=== PATIENT | female | born 1950 | race Caucasian/White ===

== ENCOUNTER 2020-11-02 09:09 | Inpatient (IN) | payer OTHER ==
[~2020-11-02] VITALS: Ht 154.9 cm; Wt 98.9 kg
[2020-11-02] VITALS (18 sets, daily range): BP systolic 93–209; BP diastolic 55–115
[2020-11-02 09:31] LABS: ABSOLUTE BASOPHILS 0.1 thou/uL (0.0-0.2); ABSOLUTE LYMPHOCYTES 0.8 thou/uL (0.8-5.3); ABSOLUTE MONOCYTES 0.8 thou/uL (0.0-1.2); ABSOLUTE NEUTROPHILS 8.4 thou/uL (1.6-8.1); BASOPHILS 1.1 %; EOSINOPHILS 0.4 %; HEMATOCRIT 38.3 % (37.0-47.0); LYMPHOCYTES 7.8 %; MCH 25.5 pg (26.0-34.0); MCHC 31.3 g/dL (28.0-37.0); MCV 81.5 fL (80.0-100.0); MPV 8.9 fl. (7.2-11.1); NUCLEATED RBCS 0 /100WBC; PLATELET COUNT* 394 thou/uL (150-400); POLYS 82.7 %; RDW-CV 20.3 % (10.5-14.5); WBC 10.1 thou/uL (4.0-11.0)
[2020-11-02 09:41] LABS: CREATININE 1.2 mg/dL (0.6-1.3); POTASSIUM 3.7 mmol/L (3.5-5.1)
[2020-11-02 09:55] LABS: ALBUMIN 3.2 g/dL (3.4-5.0); CK-MB MASS 14.2 ng/mL (<0.5-3.6); MAGNESIUM 1.7 mg/dL (1.8-2.4); TOTAL BILIRUBIN 0.3 mg/dL (<0.1-1.0); TOTAL PROTEIN 8.1 g/dL (6.4-8.2)
[2020-11-02 10:10] LABS: APTT 25.9 Seconds (25.0-31.3); PROTIME 10.7 Seconds (9.20-11.50)
[2020-11-02 11:27] LABS: BE -1.3 mmol/L (-2 to +3); PCO2 48.7 mmHg (35.0-45.0); pH 7.329 (7.340-7.450)
[2020-11-02 11:30] LABS: PO2 144.5 mmHg (75.0-100.0)
--- NOTE | 2020-11-02 15:30 | EKG ---
[place] [address] ELECTROCARDIOGRAM REPORT Name: FATEMEHGROVER Joel Room: [address] IN ..#: [id number] Admission: 11/02/20 Attend Phys: Dilan Parkinson, Discharge: Date of : 50 Date of Service: 11/02/20 0918 Report #: [id number] THIS REPORT FOR: //name// [facility] ED Test Date: 2020-11-02 Test Time: 09:18:00 Pat Name: GROVER WELDON Department: Room: [facility] Gender: F Heel Cutter: LUKE : 1950 Requested By: Sang Hernandez Order Number: [id number] MD: Blane Morris Measurements Intervals [place] Rate: 109 P: 78 MN: 151 QRS: -12 QRSD: 105 T: 13 QT: 344 QTc: 464 Interpretive Statements Sinus tachycardia Atrial premature complexes Probable left atrial enlargement Anterolateral infarct, acute (LAD) Minimal ST elevation, inferior leads No previous ECG available for comparison Electronically Signed On 11-02-2020 15:29:57 CDT by Blane Morris [email or web address] <ELECTRONICALLY SIGNED> By: Blane Morris MD, FAC 11/02/20 1529 7 7 Blane Morris MD, FAC /EPI
[2020-11-03] VITALS (14 sets, daily range): BP systolic 72–163; BP diastolic 39–95
[2020-11-03 04:40] LABS: HEMATOCRIT 37.8 % (37.0-47.0); HEMOGLOBIN 11.7 gm/dL (12.0-15.0); MCH 25.5 pg (26.0-34.0); MCHC 30.9 g/dL (28.0-37.0); MCV 82.4 fL (80.0-100.0); MPV 9.2 fl. (7.2-11.1); NUCLEATED RBCS 0 /100WBC; PLATELET COUNT* 326 thou/uL (150-400); RBC 4.58 mil/uL (4.20-5.00); RDW-CV 20.5 % (10.5-14.5)
[2020-11-03 04:49] LABS: ANION GAP 4 mmol/L (7-16); BUN 18 mg/dL (7-18); CALCIUM 8.1 mg/dL (8.5-10.1); CHLORIDE 101 mmol/L (98-107); CHOLESTEROL 135 mg/dL (<200); CO2 34 mmol/L (21-32); CREATININE 0.9 mg/dL (0.6-1.3); GLUCOSE 136 mg/dL (70-99); HDL CHOLESTEROL 35 mg/dL (>40); LDL CHOLESTEROL 86 mg/dL (<100); POTASSIUM 3.8 mmol/L (3.5-5.1); SODIUM 139 mmol/L (136-145); TC:HDL 3.9 Ratio (Not establshd); TRIGLYCERIDE 74 mg/dL (<150); VLDL 15 mg/dL (<40)
[2020-11-03 04:52] LABS: SERUM ASSESSMENT Clear
[2020-11-03 05:48] LABS: ABSOLUTE LYMPHOCYTES 0.6 thou/uL (0.8-5.3); ABSOLUTE NEUTROPHILS 9.4 thou/uL (1.6-8.1); ANISOCYTOSIS 1+; PLATELET ESTIMATE ADEQUATE; POIKILOCYTOSIS 1+
[2020-11-04 03:49] VITALS: BP 92/45
[2020-11-04 04:38] LABS: CALCIUM 7.2 mg/dL (8.5-10.1); CREATININE 1.7 mg/dL (0.6-1.3)
[2020-11-04 08:00] VITALS: BP 94/58
--- NOTE | 2020-11-04 11:54 | EKG ---
[place] [address] ELECTROCARDIOGRAM REPORT Name: GROVER WELDON Room: [address] IN ..#: [id number] Admission: 11/02/20 Attend Phys: Dilan Parkinson, Discharge: Date of : 50 Date of Service: 11/04/20822 Report #: [id number] THIS REPORT FOR: //name// [facility] Test Date: 2020-11-04 Test Time: 08:23:10 Pat Name: GROVER WELDON Department: Room: [address] Gender: F Resource Management Specialist: MARISELA : 1950 Requested By: Blane Morris Order Number: [id number] MD: Blane Morris Measurements Intervals [place] Rate: 79 P: 63 MT: 171 QRS: -9 QRSD: 102 T: 2 QT: 380 QTc: 436 Interpretive Statements Sinus rhythm Probable left atrial enlargement Probable anteroseptal infarct, recent Lateral leads are also involved Compared to ECG 11/02/2020 09:18:00 Sinus tachycardia no longer present Atrial premature complex(es) no longer present ST (T wave) deviation no longer present Myocardial infarct finding still present Electronically Signed On 11-04-2020 11:54:18 CDT by Blane Morris [email or web address] <ELECTRONICALLY SIGNED> By: Blane Morris MD, [facility] 11/04/20 1154 2 2 Blane Morris MD, [facility] /EPI
[2020-11-04 12:00] VITALS: BP 120/64
--- NOTE | 2020-11-04 13:08 | CON ---
[address] [address] CONSULTATION Name: GROVER WELDON Room: [address] IN [facility]#: [id number] Admission: 11/02/20 Attend Phys: Dilan Parkinson MD Discharge: Date of : 50 Report #: [id number] THIS REPORT FOR: cc: GABY - No family physician/PCP FAM - No family physician/PCP Blane Morris MD [facility] ~ DOC #: [id number] cc: ____ Blane Morris MD DATE OF CONSULTATION: 11/02/2020 CARDIOLOGY CONSULTATION INDICATION: ST-elevation myocardial infarction. HISTORY OF PRESENT ILLNESS: The patient is a 70-year-old white female with no prior cardiac history. She presented to the Emergency Room with complaints of chest pain beginning at 05:30 this morning. EKG at approximately 09:[address] segment elevation in the anterior leads with reciprocal ST segment depression in the inferior leads. The patient reports some twinges of chest discomfort a few days ago, relieved with Tums. She has had lower extremity swelling on and off for the past several weeks. She denies any prior history of cardiac disease. She denies any history of hypertension, diabetes or dyslipidemia. She takes no medications. SOCIAL HISTORY: She smokes a half a pack of cigarettes daily. FAMILY HISTORY: Positive for coronary artery disease. ALLERGIES: PENICILLIN AND SULFA. CURRENT MEDICATIONS: None. REVIEW OF SYSTEMS: A 14-point review positive for chest discomfort and dyspnea on exertion without orthopnea or paroxysmal nocturnal dyspnea. She has joint pain. She has lower extremity swelling. Otherwise, 14-point review of systems was unremarkable. PHYSICAL EXAMINATION: VITAL SIGNS: Vital signs presently stable. Blood pressure is 164/101, pulse is 100 and regular. GENERAL: This is a pleasant elderly female who does not appear to be in distress. Mood and affect appropriate. HEENT: Extraocular muscles intact. Mucous membranes are moist[place] [address] CONSULTATION Name: GROVER WELDON Room: [address]#: [id number] Admission: 11/02/20 Attend Phys: Dilan Parkinson MD Discharge: Date of : 50 Report #: [id number] wearing glasses. NECK: Examination of the neck shows no jugular venous CHEST: Examination of the chest reveals clear lung nunn without wheezes or rales. CARDIAC: Reveals a regular rhythm. Normal S1, S2. I do not appreciate gallop or murmur. ABDOMEN: Examination of the abdomen reveals normal bowel sounds. Abdomen is soft and nontender. EXTREMITIES: Examination of the extremity shows 2-3+ pitting edema to the knees bilaterally. LABORATORY DATA: Labs are pending at the time of this dictation. DIAGNOSTIC DATA: Chest x-ray is ordered and pending at the time of this dictation. IMPRESSION AND RECOMMENDATION: 1. Acute ST elevation myocardial infarction. The patient will be taken emergently to the cardiac catheterization lab for emergent intervention. Further medication adjustments and treatments, pending those results. 2. Hypertension. Blood pressure elevated at present. We will adjust antihypertensive medications post-intervention as needed. 3. Probable dyslipidemia. Fasting lipid profile will be obtained. 4. Chronic tobacco habituation. Cessation will be advised. MD RICHARD Miller/LISA/DARELL <ELECTRONICALLY SIGNED> By: Blane Morris MD, [facility] 11/04/20 1308 0831 [id number] medical centerhaylie Morris MD, FACC /nt
[2020-11-04] MEDS ORDERED: SPIRONOLACTONE25 MG PO (13:09)
[2020-11-04] MEDS ORDERED: BAYER CHEWABLE81 MG PO (13:09)
[2020-11-04] MEDS ORDERED: EFFIENT10 MG PO (13:09)
[2020-11-04] MEDS ORDERED: NEXIUM40 MG PO (13:09)
[2020-11-04] MEDS ORDERED: LIPITOR 40 MG T40 M1 PO (13:09)
[2020-11-04] MEDS ORDERED: COZAAR 50 MG TA50 M1 PO (13:09)
[2020-11-04] MEDS ORDERED: CARVEDILOL3.125 MG PO (13:09)
[2020-11-04] MEDS ORDERED: PREDNISONE 10 M10 MG PO (13:09)
--- NOTE | 2020-11-04 13:45 | 2DMMODE ---
[place] [address] 2 D/M-MODE ECHOCARDIOGRAM Name: EFREM WELDONALEXANDER Joel Room: [address] IN [facility]#: [id number] Admission: 11/02/20 Attend Phys: Dilan Parkinson, Discharge: Date of : 50 Date of Service: 11/04/20 1344 Report #: [id number] THIS REPORT FOR: cc: FAM - No family physician/PCP FAM - No family physician/PCP Blane Morris MD [facility] ~ APPROVED REPORT Study performed: 11/04/2020 12:08:17 EXAM: Comprehensive 2D, Doppler, and color-flow Echocardiogram Patient Location: In-Patient Room #: [facility] Status: routine BSA: 1.93 HR: 87 bpm Rhythm: NSR Other Information Study Quality: Good Indications Acute PR 2D Dimensions IVSd: 13.58 (7-11mm) LVOT Diam: 20.83 (18-24mm) LVDd: 48.97 mm PWd: 10.40 (7-11mm) Ascending Ao: 26.00 (22-36mm) LVDs: 38.96 (25-40mm) Volumes Left Atrial Volume (Systole) LA ESV Index: 43.00 mL/m2 Aortic Valve AoV Peak Bayron.: 1.07 m/s AO Peak Gr.: 4.59 mmHg LVOT Max P.75 mmHg AO Mean Gr.: 2.51 mmHg LVOT Mean P.11 mmHg LVOT Max V: 0.83 m/s AO V2 VTI: 17.30 cm LVOT Mean V: 0.47 m/s DIANA (VTI): 2.55 cm2 LVOT V1 VTI: 12.96 [place] [address] 2 D/M-MODE ECHOCARDIOGRAM Name: GROVER WELDON Room: [address] IN ..#: [id number] Admission: 11/02/20 Attend Phys: Dilan Parkinson, Discharge: Date of : 50 Date of Service: 11/04/20 1344 Report #: [id number] E/A Ratio: 2.23 MV Decel. Time: 132.60 ms MV E Max Bayron.: 1.00 m/s MV PHT: 38.46 ms MVA (PHT): 5.72 cm2 TDI E/Lateral E': 14.29 E/Medial E': 25.00 Medial E' Bayron.: 0.04 m/s Lateral E' Bayron.: 0.07 m/s Pulmonary Valve PV Peak Bayron.: 0.70 m/s PV Peak Gr.: 1.99 mmHg Tricuspid Valve RAP Estimate: 5.00 mmHg TR Peak Gr.: 35.28 mmHg RVSP: 40.00 mmHg PA Pressure: 40.00 mmHg Left Ventricle The left ventricle is normal size. There is akinesis of the mid to apical anterior wall apex and apical portion the inferior wall. Mild concentric left ventricular hypertrophy. Left ventricular ejection fraction is moderate to severely decreased. LVEF is 30-35%. Transmitral Doppler flow pattern suggests restrictive physiology. Right Ventricle The right ventricle is normal size. The right ventricular systolic function is normal. Atria Left atrium is moderately dilated. The right atrium size is normal. Aortic Valve Mild aortic valve sclerosis. No aortic regurgitation is present. There is no aortic valvular stenosis. Mitral Valve The mitral valve is normal in structure. Mild mitral regurgitation. No evidence of mitral valve stenosis. Tricuspid Valve The tricuspid valve is normal in structure. Mild tricuspid regurgitation. [place] [address] 2 D/M-MODE ECHOCARDIOGRAM Name: GROVER WELDON Room: [address]#: [id number] Admission: 11/02/20 Attend Phys: Dilan Parkinson, Discharge: Date of : 50 Date of Service: 11/04/20 1344 Report #: [id number] Pulmonic Valve The pulmonary valve is normal in structure. There is no pulmonic valvular regurgitation. Great Vessels The aortic root is normal in size. IVC is normal in size and collapses >50% with inspiration. Pericardium There is no pericardial effusion. <Conclusion> The left ventricle is normal size. Mild concentric left ventricular hypertrophy. Left ventricular ejection fraction is moderate to severely decreased. LVEF is 30-35%. Transmitral Doppler flow pattern suggests restrictive physiology. There is akinesis of the mid to apical anterior wall apex and apical portion the inferior wall. Mild aortic valve sclerosis. Mild mitral regurgitation. Mild tricuspid regurgitation. Moderate pulmonary hypertension. IVC is normal in size and collapses >50% with inspiration. <ELECTRONICALLY SIGNED> By: Blane Morris MD, FACC 11/04/20 1344 1344 1344 Blane Morris MD, FACC /INF
[2020-11-04 16:00] VITALS: BP 91/55
[2020-11-04 20:00] VITALS: BP 108/62
[2020-11-05] VITALS (7 sets, daily range): BP systolic 98–122; BP diastolic 50–74
[2020-11-05 06:06] LABS: CALCIUM 7.2 mg/dL (8.5-10.1); CREATININE 2.3 mg/dL (0.6-1.3); POTASSIUM 4.3 mmol/L (3.5-5.1)
[2020-11-05 22:07] LABS: URINE BLOOD 3+ (Negative); URINE CLARITY SL CLOUDY; URINE COLOR DARK YELLOW; URINE GLUCOSE-RANDOM TRACE (Negative); URINE KETONES TRACE (Negative); URINE LEUKOCYTES NEGATIVE (Negative); URINE NITRITE NEGATIVE (Negative); URINE PROTEIN 2+ (Negative)
[2020-11-05 22:10] LABS: URINE BILIRUBIN 1+ (Negative)
[2020-11-05 22:12] LABS: ICTOTEST (BILI CONFIRMATORY) Negative (Negative)
[2020-11-05 23:17] LABS: CASTS None Seen /LPF (None Seen); SQUAMOUS 0-3 Few /LPF (0-3); URINE RBC >20 Many /HPF (0-2); URINE WBC 0-5 Rare /HPF (0-5)
[2020-11-05 23:18] LABS: BACTERIA >30 Many /HPF (None Seen); CRYSTALS None Seen /LPF (None Seen)
[2020-11-06 03:47] VITALS: BP 110/68
[2020-11-06 04:33] LABS: ABSOLUTE LYMPHOCYTES 1.2 thou/uL (0.8-5.3); ABSOLUTE MONOCYTES 1.1 thou/uL (0.0-1.2); ABSOLUTE NEUTROPHILS 8.7 thou/uL (1.6-8.1); BASOPHILS 0.2 %; EOSINOPHILS 0.1 %; HEMATOCRIT 32.5 % (37.0-47.0); HEMOGLOBIN 10.2 gm/dL (12.0-15.0); LYMPHOCYTES 11.1 %; MCHC 31.4 g/dL (28.0-37.0); MCV 79.7 fL (80.0-100.0); MONOCYTES 10.1 %; MPV 8.9 fl. (7.2-11.1); NUCLEATED RBCS 0 /100WBC; PLATELET COUNT* 370 thou/uL (150-400); POLYS 78.5 %; RBC 4.07 mil/uL (4.20-5.00); RDW-CV 20.4 % (10.5-14.5); WBC 11.1 thou/uL (4.0-11.0)
[2020-11-06 04:51] LABS: ALBUMIN 2.8 g/dL (3.4-5.0); CALCIUM 7.2 mg/dL (8.5-10.1); CREATININE 2.5 mg/dL (0.6-1.3); MAGNESIUM 2.2 mg/dL (1.8-2.4); PHOSPHORUS* 4.2 mg/dL (2.5-4.9); POTASSIUM 4.6 mmol/L (3.5-5.1); TOTAL BILIRUBIN 0.2 mg/dL (<0.1-1.0)
[2020-11-06 07:06] LABS: ANISOCYTOSIS 2+; TARGET CELLS 1+
[2020-11-06 08:30] VITALS: BP 107/61
[2020-11-06 12:00] VITALS: BP 100/64
[2020-11-06 15:37] VITALS: BP 121/67
[2020-11-06 20:00] VITALS: BP 129/76
[2020-11-07 00:27] VITALS: BP 140/74
[2020-11-07 04:08] VITALS: BP 106/60
[2020-11-07 05:15] LABS: ABSOLUTE LYMPHOCYTES 1.1 thou/uL (0.8-5.3); ABSOLUTE MONOCYTES 1.2 thou/uL (0.0-1.2); ABSOLUTE NEUTROPHILS 6.9 thou/uL (1.6-8.1); BASOPHILS 0.1 %; EOSINOPHILS 0.1 %; HEMOGLOBIN 10.3 gm/dL (12.0-15.0); MCHC 31.1 g/dL (28.0-37.0); MCV 80.5 fL (80.0-100.0); MPV 9.1 fl. (7.2-11.1); NUCLEATED RBCS 0 /100WBC; PLATELET COUNT* 342 thou/uL (150-400); POLYS 74.8 %; RDW-CV 20.2 % (10.5-14.5); WBC 9.2 thou/uL (4.0-11.0)
[2020-11-07 05:34] LABS: ALBUMIN 2.8 g/dL (3.4-5.0); CALCIUM 7.2 mg/dL (8.5-10.1); CREATININE 1.6 mg/dL (0.6-1.3); POTASSIUM 3.9 mmol/L (3.5-5.1); TOTAL BILIRUBIN 0.2 mg/dL (<0.1-1.0); TOTAL PROTEIN 6.9 g/dL (6.4-8.2)
[2020-11-07 08:00] VITALS: BP 102/54
[2020-11-07 11:41] VITALS: BP 102/54
--- NOTE | 2020-11-07 13:25 | CON ---
[address] [address] CONSULTATION Name: GROVER WELDON Room: [address] IN [place].#: [id number] Admission: 11/02/20 Attend Phys: Dilan Parkinson MD Discharge: 11/07/20 Date of : 50 Report #: [id number] THIS REPORT FOR: cc: GABY - No family physician/PCP FAM - No family physician/PCP Eddie Gutierrez MD ~ DOC #: [id number] Eddie Gutierrez MD DATE OF CONSULTATION: 11/05/2020 CONSULTING PHYSICIAN: Dilan Parkinson MD REASON FOR CONSULTATION: Acute kidney injury. HISTORY OF PRESENT ILLNESS: This is a 70-year-old female who I am asked to see for acute kidney injury following ST elevation IN and stent placement. Currently, appears to be comfortable, has no complaints. Denies any baseline renal impairment. REVIEW OF SYSTEMS: Constitutional, psych, heme, eyes, ENT, respiratory, cardiac, GI, , endocrine, all negative except as documented above. PAST MEDICAL HISTORY: Coronary artery disease with recent ST elevation IN and CHF along with COPD. SOCIAL HISTORY: Positive for tobacco. FAMILY HISTORY: Nonpertinent is a 70-year-old female. CURRENT MEDICATIONS: Reviewed. PHYSICAL EXAMINATION: VITAL SIGNS: Blood pressure 105/60, pulse 82, respirations 17, temperature 36.2. GENERAL: No acute distress. EYES: Open. EARS: Externally normal. NECK: Supple. CARDIOVASCULAR: Regular rate. LUNGS: No crackles. ABDOMEN: Soft. MUSCULOSKELETAL: Nontender. Positive lower extremity edema. PSYCHIATRIC: Awake, alert. LABORATORY DATA: White cell count 10, hemoglobin 11.7, platelets [place] [address] CONSULTATION Name: GROVER WELDON Wisam Room: [address]#: [id number] Admission: 11/02/20 Attend Phys: Dilan Parkinson MD Discharge: 11/07/20 Date of : 50 Report #: [id number] 136, potassium 4.3, chloride 100, bicarbonate 30, BUN 55, creatinine 2.3, glucose 161, calcium 7.2. ASSESSMENT: 1. Acute kidney injury. Baseline creatinine unknown. Admission creatinine 1.2 up to 2.3 in the setting of ST elevation IN and stent placement with an ejection fraction of 25-30%. She was on Lasix, Aldactone, and losartan. 2. ST elevation myocardial infarction, status post cardiac catheterization. 3. Chronic obstructive pulmonary disease. 4. History of hypertension. 5. Ischemic cardiomyopathy. 6. Bilateral lower extremity edema. PLAN: Monitor I's and O's. Check renal ultrasound, check UA, check urine protein to creatinine ratio. Check lower extremity Doppler. Continue current management. Check lab again in the a.m. Thank you for requesting my opinion in the care and management of this patient. MD JOVAN Siddiqui/LISA/DARELL <ELECTRONICALLY SIGNED> By: Eddie Gutierrez MD 11/07/20 1325 1525 Abicynthia Gutierrez MD /nt
[2020-11-08 11:48] VITALS: BP 163/95
--- NOTE | 2020-11-08 12:14 | CARD ---
[address] [address] CARDIAC CATH REPORT Name: GROVER WELDON Room: [address]#: [id number] Admission: 11/02/20 Attend Phys: Dilan Parkinson MD Discharge: 11/07/20 Date of : 50 Report #: [id number] THIS REPORT FOR: cc: FAM - No family physician/PCP FAM - No family physician/PCP Tramaine Calderon MD [facility] ~ APPROVED REPORT Study performed: 11/02/2020 09:28:32 Patient Details Patient Status: ED Room #: The patient is a 70 year-old female Event Personnel Tramaine Calderon Door To Door Sales Representative, Blane Morris Strap Folding Machine Operator, Ave Croft RN RN, Alexy Waldron RTR Scrub, Angela Demarco RTR Monitor Procedures Performed Art Access - R femoral artery Left Heart Cath w/or w/o Coronaries KRISTEN Revasc AMI Total/Sub Single LAD Hemostasis w/ Angioseal Indication Abnormal ECG, STEMI , Chest pain Risk Factors Tobacco History () Admission/Lab Medications/Medications given during procedure Glycoprotein IllbIlla Inhibitors, Heparin Unfract., Aspirin PO 325 mg, Lidocaine Subcut 12 ml, Oxygen Nasal cannula 2 l per min, 0.9% Sodium Chloride IV 75 ml per hr, Effient PO 60 mg Procedure Narrative The patient was brought emergently to the Cardiac Catheterization Laboratory and was prepped and draped in a sterile manner. The right femoral was infiltrated with 2% Lidocaine subcutaneous anesthesia. A Mercer 6 FR sheath was inserted into the right femoral artery. Coronary angiography was performed using coronary diagnostic catheters. The right coronary system was accessed and visualized with a Diagnostic 6 Fr JR 4 catheter. The [place] [address] CARDIAC CATH REPORT Name: GROVER WELDON Room: [address]#: [id number] Admission: 11/02/20 Attend Phys: Dilan Parkinson MD Discharge: 11/07/20 Date of : 50 Report #: [id number] accessed and visualized with a Diagnostic 6 Fr JL 4 catheter. The left ventricle was accessed and visualized with a Diagnostic 6 Fr Pigtail catheter. Left ventricular/Aortic Valve gradient assessed via catheter pullback. Left ventriculogram was performed in STERN projection. Pre-demployment femoral angiogram was performed . Closure device was deployed with a Fr 6 Fr Angioseal. The patient tolerated the procedure well and there were no complications associated with the procedure. There was no hematoma. Intraoperative Conscious Sedation No sedation was given. Case start was 0940 and case end was 1012. Fluoro Time: 7.2 minutes Dose: DAP 283603 cGycm2 1684 mGy Contrast Type and Amount: Visipaque 280 ml Coronary Angiography The patient's coronary anatomy is left dominant. Diagnostic Cath Left Main The LAD and circumflex have separate ostia. LAD The left anterior descending coronary artery is totally occluded acutely in its midportion. Circumflex The circumflex coronary artery is free of significant disease and a dominant vessel. OM1 A large branch first obtuse marginal branch is free of significant disease. OM2 A moderate sized second obtuse marginal branch appears normal. Right Coronary A small nondominant right coronary artery has minimal plaquing proximally. R PDA A moderate-sized branch left posterior lateral branch is free of significant disease. RPLV New moderate size left PDA is free of significant disease. Left Ventriculography The left ventricular ejection fraction is estimated to be 25-30%. Left ventricular wall motion abnormalities are present. There is no mitral insufficiency. Akinesis noted of the mid and distal anterior wall and apex. Hemodynamics The aortic pressure is 143/85 mmHg with a mean of 108 [place] [address] CARDIAC CATH REPORT Name: GROVER WELDON Wisam Room: [address]#: [id number] Admission: 11/02/20 Attend Phys: Dilan Parkinson MD Discharge: 11/07/20 Date of : 50 Report #: [id number] ventricular pressure is 139/27 mmHg with a mean of mmHg. The left ventricular end diastolic pressure is 35 mmHg. There was no gradient across the aortic valve upon pullback. Pullback from the left ventricle to the aorta revealed no gradient across the aortic valve. PCI Technique Lesion Anticoagulation was achieved with Heparin. bolus of IV aggrastat given Percutaneous coronary intervention was performed on the mid left anterior descending artery segment. The lesion stenosis prior to intervention was 100% with NELL 0 flow. A 6F XB LAD 3.5 Guide Catheter was used to engage the left main ostium. A IG: BMW 190cm Interventional Guidewire was used to cross the lesion. BALLOON DILATION A Balloon catheter Euphora SC 2.5x12 was inserted and inflated up to 14.00atm for 11seconds. Repeat angiography revealed the following post-dilatation results: 80% stenosis. Two separate ostia were noted of the left coronary artery arising from the left coronary cusp. Unable to cannulate the LAD ostium with a XBLAD4.0 guiding catheter. STENT DEPLOYMENT A drug-eluting stent Kye RX Stent 3.5X18mm was inserted and inflated up to 9.00atm for 15seconds. Repeat angiography revealed the following post-stent deployment results: 0% stenosis. Additional Inflation: 16.00atm for 17seconds. Additional Inflation: 18.00atm for 9seconds. Final angiography reveals 0 % stenosis with NELL 3 flow. Conclusion 1. Acute occlusion of the mid left anterior sending coronary artery. 2. Left dominant system. 3. Separate ostia for the LAD and circumflex. 4. Elevated left ventricular end-diastolic pressure consistent with acute heart failure. 5. successful placement of a drug eluting stent in the mid LAD 6. LVEF 25-30% Recommendations 1. Percutaneous coronary intervention with drug-eluting stent placement to [place] [address] CARDIAC CATH REPORT Name: GROVER WELDON Room: [address] IN [place].#: [id number] Admission: 11/02/20 Attend Phys: Dilan Parkinson MD Discharge: 11/07/20 Date of : 50 Report #: [id number] 2. Continue aggressive risk factor modification and medical management of heart failure. Diagnostic Cath Approved by: Blane Morris MD Date/Time: <ELECTRONICALLY SIGNED> By: Tramaine Calderon MD, FACC 11/08/20 1213 12 1213Dkim Calderon MD, FACC /INF
== END 2020-11-07 12:50 | disposition home or self-care (01) | DRG 246 ==
LOC: M.ERS 09:09 → M.CL 09:31 → M.TBA-CV 09:31 → M.CL 11:17 → M.ICU 11:17 → M.2W 11:17 → M.TBA-CV 11:17 → M.ICU 11:45 → M.2W 11-03 13:39
PROVIDERS: Family Medicine; Internal Medicine; Internal Medicine Cardiovascular Disease; Internal Medicine Nephrology; ADMIT Internal Medicine; ATTEND Internal Medicine
PROC: B215YZZ Fluoroscopy of Left Heart using Other Contrast (ICD-10-PCS; principal; 2020-11-02)
PROC: B211YZZ Fluoroscopy of Multiple Coronary Arteries using Other Contrast (ICD-10-PCS; principal; 2020-11-02)
PROC: 3E033PZ Introduction of Platelet Inhibitor into Peripheral Vein, Percutaneous Approach (ICD-10-PCS; principal; 2020-11-02)
PROC: 5A09357 Assistance with Respiratory Ventilation, Less than 24 Consecutive Hours, Continuous Positive Airway Pressure (ICD-10-PCS; principal; 2020-11-02)
PROC: 4A023N7 Measurement of Cardiac Sampling and Pressure, Left Heart, Percutaneous Approach (ICD-10-PCS; principal; 2020-11-02)
PROC: 027034Z Dilation of Coronary Artery, One Artery with Drug-eluting Intraluminal Device, Percutaneous Approach (ICD-10-PCS; principal; 2020-11-02)
DX: I21.09 ST elevation (STEMI) myocardial infarction involving other coronary artery of anterior wall (principal); J96.20 Acute and chronic respiratory failure, unspecified whether with hypoxia or hypercapnia; I50.21 Acute systolic (congestive) heart failure; N17.0 Acute kidney failure with tubular necrosis; J44.1 Chronic obstructive pulmonary disease with (acute) exacerbation; F17.210 Nicotine dependence, cigarettes, uncomplicated; I11.0 Hypertensive heart disease with heart failure; I77.1 Stricture of artery; E78.5 Hyperlipidemia, unspecified; I25.10 Atherosclerotic heart disease of native coronary artery without angina pectoris; I25.5 Ischemic cardiomyopathy; Z20.822 Contact with and (suspected) exposure to COVID-19; Z88.0 Allergy status to penicillin; Z88.2 Allergy status to sulfonamides

== ENCOUNTER → 2020-11-10 | Outpatient (CLI) | payer OTHER ==
[~2020-11-10] MED LIST: BAYER CHEWABLE81 MG PO; CARVEDILOL3.125 MG PO; COZAAR 50 MG TA50 M1 PO; EFFIENT10 MG PO; LIPITOR 40 MG T40 M1 PO; NEXIUM40 MG PO; PREDNISONE 10 M10 MG PO; SPIRONOLACTONE25 MG PO
[2020-11-10 13:15] LABS: CALCIUM 7.4 mg/dL (8.5-10.1); CREATININE 0.9 mg/dL (0.6-1.3); POTASSIUM 4.2 mmol/L (3.5-5.1)
== END ==
LOC: M.LAB 12:35
PROVIDERS: ATTEND Registered Nurse
DX: I50.42 Chronic combined systolic (congestive) and diastolic (congestive) heart failure (principal)

== ENCOUNTER → 2020-12-06 | Outpatient (CLI) | payer OTHER | LOC: M.ULTRA 12:46 | PROVIDERS: ATTEND Registered Nurse | DX: I73.9 Peripheral vascular disease, unspecified (principal) ==

== ENCOUNTER → 2020-12-17 | Outpatient (CLI) | payer OTHER ==
[~2020-12-17] VITALS: Ht 167.6 cm; Wt 86.2 kg
[~2020-12-17] MED LIST changes: +COLACE100 MG PO; +LASIX 40 MG TAB40 MG PO
[2020-12-17 12:57] LABS: CALCIUM 8.9 mg/dL (8.5-10.1); CREATININE 1.1 mg/dL (0.6-1.3); POTASSIUM 3.8 mmol/L (3.5-5.1)
[2020-12-17 14:55] VITALS: BP 90/53
== END ==
LOC: M.INT 12-09 10:47 → M.LAB 12:00 → M.CT 13:00 → M.INT 13:30
PROVIDERS: ATTEND Radiology Diagnostic Radiology
DX: I70.201 Unspecified atherosclerosis of native arteries of extremities, right leg (principal); K57.30 Diverticulosis of large intestine without perforation or abscess without bleeding; I25.10 Atherosclerotic heart disease of native coronary artery without angina pectoris; I25.5 Ischemic cardiomyopathy; I50.42 Chronic combined systolic (congestive) and diastolic (congestive) heart failure; I65.29 Occlusion and stenosis of unspecified carotid artery; K44.9 Diaphragmatic hernia without obstruction or gangrene; Z72.0 Tobacco use